=== PATIENT | male | born 2000 | race Two or more races ===

== ENCOUNTER 2023-02-19 13:15 | Emergency (ER) | payer MEDICAID, OTHER ==
[~2023-02-19] VITALS: Ht 172.7 cm; Wt 89.4 kg
[2023-02-19 14:12] LABS: Basophils # (auto) 0 10 ^3/uL (0-0.2); Basophils % (auto) 0.6 % (0.0-2.0); Eosinophils # (auto) 0.2 10 ^3/uL (0-0.8); Eosinophils % (auto) 2.8 % (0.0-7.0); Hematocrit 41.3 % (41.0-53.0); Hemoglobin 14.4 g/dL (13.5-17.5); Lymphocytes # (auto) 1.4 10 ^3/uL (0.4-5.4); Lymphocytes % (auto) 17.8 % (10.0-50.0); Mean Corpuscular Hgb Conc. 34.8 g/dL (32.0-36.0); Monocytes # (auto) 0.6 10 ^3/uL (0-1.3); Monocytes % (auto) 8.2 % (0.0-12.0); Neutrophils # (auto) 5.4 10 ^3/uL (1.6-8.6); Neutrophils % (auto) 70.6 % (37.0-80.0); Nucleated Red Blood Cells % 0.8 %; Red Blood Cells 4.64 10^6/uL (4.5-5.90); Red Cell Distribution Width 13.1 % (11.8-14.3); White Blood Cell 7.6 10^3/uL (4.4-10.8)
[2023-02-19 14:34] LABS: Calcium 8.7 mg/dL (8.5-10.1); Chloride 111 mmol/L (98-107); Sodium 142 mmol/L (136-145)
[2023-02-19 14:39] LABS: Alanine Aminotransferase 11 U/L (16-61); Albumin 4.1 g/dL (3.4-5.0); Alkaline Phosphatase 61 U/L (45-117); Anion Gap 9 (5-15); Aspartate Aminotransferase 19 U/L (15-37); BUN/Creatinine Ratio 16.3 (10.0-20.0); Bilirubin, Total 0.5 mg/dL (0.2-1.0); Blood Alcohol < 3.0 mg/dL (<10); Blood Urea Nitrogen 17 mg/dL (7-18); Carbon Dioxide 22 mmol/L (21-32); GFR African American 115 mL/min; GFR Non-African American 95 mL/min; Glucose 87 mg/dL (74-106); Total Protein 7.2 g/dL (6.4-8.2)
[2023-02-19 14:40] LABS: Potassium 4.8 mmol/L (3.5-5.1)
[2023-02-19] MEDS ORDERED: LEVE100012 PO (15:00)
[2023-02-19 15:09] VITALS: BP 97/63
== END 2023-02-19 15:11 | disposition home or self-care (01) ==
LOC: ER 13:15
DX: R56.9 Unspecified convulsions (principal); F17.210 Nicotine dependence, cigarettes, uncomplicated; F12.90 Cannabis use, unspecified, uncomplicated; Z98.890 Other specified postprocedural states
CPT/HCPCS: 36415; 70450; 80053; 80164; 80320; 82962; 85025; 96365; 99285; J1953; J7060

== ENCOUNTER 2023-04-28 17:23 | Emergency (ER) | payer MEDICAID ==
[~2023-04-28] VITALS: Ht 172.7 cm; Wt 89.0 kg
[~2023-04-28 17:23] MED LIST: LEVE100012 PO
[2023-04-28 17:40] VITALS: PULSE 71; RESP 23; O2SAT 95
[2023-04-28] MEDS ORDERED: SODIUM CHLORIDE 0.9% 1,000 ML IVB ONE (17:45)
[2023-04-28 18:24] LABS: Basophils # (auto) 0 10 ^3/uL (0-0.2); Basophils % (auto) 0.3 % (0.0-2.0); Eosinophils # (auto) 0 10 ^3/uL (0-0.8); Hematocrit 44.4 % (41.0-53.0); Hemoglobin 15.2 g/dL (13.5-17.5); Lymphocytes # (auto) 1.1 10 ^3/uL (0.4-5.4); Lymphocytes % (auto) 6.2 % (10.0-50.0); Mean Corpuscular Hemoglobin 30.5 pg (28.0-32.0); Mean Corpuscular Hgb Conc. 34.2 g/dL (32.0-36.0); Monocytes # (auto) 1.5 10 ^3/uL (0-1.3); Monocytes % (auto) 8.4 % (0.0-12.0); Neutrophils # (auto) 15.1 10 ^3/uL (1.6-8.6); Neutrophils % (auto) 85.1 % (37.0-80.0); Nucleated Red Blood Cells % 0.1 %; Red Blood Cells 4.99 10^6/uL (4.5-5.90); Red Cell Distribution Width 13.8 % (11.8-14.3); White Blood Cell 17.7 10^3/uL (4.4-10.8)
[2023-04-28 18:41] LABS: Alanine Aminotransferase 10 U/L (7-40); Albumin 5.1 g/dL (3.2-4.8); Alkaline Phosphatase 65 U/L (46-116); Anion Gap 9.5 (5-15); Aspartate Aminotransferase 50 U/L (13-40); BUN/Creatinine Ratio 10.8 (10.0-20.0); Bilirubin, Total 2.9 mg/dL (0.2-1.0); Blood Urea Nitrogen 12 mg/dL (9-23); Calcium 9.6 mg/dL (8.7-10.4); Carbon Dioxide 20.5 mmol/L (20-30); Chloride 106 mmol/L (98-107); Glucose 86 mg/dL (74-106); Potassium 4.1 mmol/L (3.5-5.1); Sodium 136 mmol/L (136-145)
[2023-04-28] MEDS ORDERED: ACETAMINOPHEN 325 MG TAB PO ONE (19:00)
[2023-04-28] MEDS ORDERED: LEVE100012 PO (19:19)
[2023-04-28] MEDS ORDERED: DIVA500T3 PO (19:19)
[2023-04-28 20:00] VITALS: BP 120/75; PULSE 68; RESP 22; O2SAT 98
== END 2023-04-28 20:06 | disposition home or self-care (01) ==
LOC: ER 17:23
DX: R56.9 Unspecified convulsions (principal); F17.210 Nicotine dependence, cigarettes, uncomplicated; Z79.899 Other long term (current) drug therapy
CPT/HCPCS: 36415; 70450; 80053; 85025; 96365; 99285; J1953; J7030; J7060